=== PATIENT | female | born 2000 | race Two or more races ===

== ENCOUNTER 2022-05-12 11:43 | Emergency (ER) | payer OTHER ==
[~2022-05-12] VITALS: Ht 160 cm; Wt 77.6 kg
[2022-05-12] MEDS ORDERED: ONDANSETRON ODT8 MG PO (16:46)
== END 2022-05-12 16:57 | disposition home or self-care (01) ==
LOC: ER 11:43 → EMR PED 11:43 → ER 13:58
DX: O99.612 Diseases of the digestive system complicating pregnancy, second trimester (principal); K92.89 Other specified diseases of the digestive system; Z3A.15 15 weeks gestation of pregnancy; K52.9 Noninfective gastroenteritis and colitis, unspecified

== ENCOUNTER 2022-09-18 12:54 | Inpatient (IN) | payer OTHER ==
[~2022-09-18] VITALS: Ht 160 cm; Wt 82.1 kg
[~2022-09-18 12:54] MED LIST: ONDANSETRON ODT8 MG PO
== END 2022-09-21 14:25 | disposition home or self-care (01) | DRG 788 ==
LOC: LDR 12:54 → OB/GYN 09-19 18:33
PROVIDERS: ADMIT Obstetrics & Gynecology Obstetrics; ATTEND Obstetrics & Gynecology Obstetrics
PROC: BY4CZZZ Ultrasonography of Second Trimester, Single Fetus (ICD-10-PCS; 2022-09-18)
PROC: 4A1HXCZ Monitoring of Products of Conception, Cardiac Rate, External Approach (ICD-10-PCS; 2022-09-18)
PROC: 10D00Z1 Extraction of Products of Conception, Low, Open Approach (ICD-10-PCS; principal; 2022-09-19 16:00)
DX: O60.14X0 Preterm labor third trimester with preterm delivery third trimester, not applicable or unspecified (principal); Z3A.34 34 weeks gestation of pregnancy; Z37.0 Single live birth; O62.1 Secondary uterine inertia; Z20.822 Contact with and (suspected) exposure to COVID-19